=== PATIENT | male | born 1960 | race African-American/Black ===

== ENCOUNTER → 2020-09-15 | Outpatient (CLI) | payer OTHER ==
[~2020-09-15] MED LIST: IOHEXOL 300 MG/ML 75 ML VIAL. IV ONE
--- NOTE | 2020-09-15 11:30 | RAD ---
CT of the abdomen and pelvis with and without IV contrast and without comparison for prostate cancer. TECHNIQUE: Contiguous axial CT images are obtained through the abdomen and pelvis both before and aft er administration of IV contrast. Sagittal and coronal reformations are evaluated. FINDINGS: There are patchy ground glass changes throughout the lungs which could reflect developing i nfectious or inflammatory pneumonitis. No suspicious lung nodules. Sliding-type hernia is noted. Live r, gallbladder, spleen, pancreas, and bilateral adrenal glands are all unremarkable. No suspicious ab normalities involving the kidneys. No free or loculated fluid collections within the abdomen or pelvi s. Urinary bladder is fluid distended and grossly unremarkable. Postsurgical changes of the right ing uinal region are noted. Appendix is normal. Phleboliths are seen in the pelvis. There are no suspicio us osteoblastic or osteolytic bone lesions. There is no suspicious inguinal, retroperitoneal, or pelv ic adenopathy. There is mild multifocal atherosclerosis. IMPRESSION: 1. Patchy groundglass changes throughout both lung bases which could reflect developing inflammatory or infectious pneumonitis. 2. No evidence of metastatic disease. Para PQRS Compliance Statement: One or more of the following individualized dose reduction techniques were utilized for this examinat ion: 1. Automated exposure control 2. Adjustment of the mA and/or kV according to patient size 3. Use of iterative reconstruction technique Electronically signed by: Brandon Talamantes MD (09/15/2020 11:28 AM) [id number]
--- NOTE | 2020-09-15 17:31 | RAD ---
Nuclear medicine whole body bone scan History: Prostate cancer. Comparison: CT abdomen and pelvis without and with contrast, earlier same day. Technique: Examination performed after intravenous administration of 25 mCi Technetium 99m MDP. Imag es of the whole body were obtained in the anterior and posterior projections. Findings: Tracer uptake in the spine is mildly heterogeneous. There is increased tracer uptake of the bilateral sternoclavicular joints that may be degenerative. Tracer uptake in ribs is symmetric. Tracer uptake of pelvic bones is symmetric. The sacrum is partially obscured due to tracer in the urinary bladder. Tracer uptake in the extremities is unremarkable. Tracer distribution in the soft tissues appears phy siologic. Mildly increased tracer uptake in the region of the facial bones could be artifactual or du e to paranasal sinus disease and is unlikely to be isolated metastasis. Increased tracer uptake left lateral of the upper cervical spine is nonspecific but in this location is often due to facet hypertr ophy. Impression: No scintigraphic evidence of osteoblastic bone metastasis. Electronically signed by: Livan Hudson MD (09/15/2020 5:29 PM) [id number]
== END ==
LOC: NM 10:00
PROVIDERS: ATTEND Preventive Medicine Occupational Medicine
DX: C61 Malignant neoplasm of prostate (principal)
CPT/HCPCS: 74178; 78306; A9503; Q9967